=== PATIENT | female | born 1985 | race African-American/Black ===

== ENCOUNTER 2016-10-29 20:08 | Emergency (ER) | payer OTHER ==
[~2016-10-29] VITALS: Ht 170.2 cm; Wt 124.7 kg
[~2016-10-29 20:08] MED LIST: IBUPROFEN 600600 M1 PO; NORCO 5-325 TA1 EACH PO
[2016-10-29] MEDS ORDERED: FLEXERIL PO (22:31)
[2016-10-29] MEDS ORDERED: IBUPROFEN 600600 M1 PO (22:32)
[2016-10-29 22:37] VITALS: BP 136/88
[2016-10-29] MEDS ORDERED: NORCO 5-325 TA1 EACH PO (22:56)
== END 2016-10-29 23:05 | disposition home or self-care (01) ==
LOC: ER 20:08
DX: S82.61XA Displaced fracture of lateral malleolus of right fibula, initial encounter for closed fracture (principal); S16.1XXA Strain of muscle, fascia and tendon at neck level, initial encounter; S39.012A Strain of muscle, fascia and tendon of lower back, initial encounter; F10.99 Alcohol use, unspecified with unspecified alcohol-induced disorder; V43.52XA Car driver injured in collision with other type car in traffic accident, initial encounter; Y93.I9 Activity, other involving external motion; Y92.488 Other paved roadways as the place of occurrence of the external cause; Y99.8 Other external cause status

== ENCOUNTER 2016-11-04 14:18 | Emergency (ER) | payer OTHER ==
[~2016-11-04] VITALS: Ht 170.2 cm; Wt 122.5 kg
[~2016-11-04 14:18] MED LIST changes: +FLEXERIL PO
[2016-11-04 16:15] VITALS: BP 164/71
== END 2016-11-04 16:10 | disposition home or self-care (01) ==
LOC: ER 14:18
DX: M25.571 Pain in right ankle and joints of right foot (principal); F10.99 Alcohol use, unspecified with unspecified alcohol-induced disorder; M54.5 Low back pain